=== PATIENT | female | born 1940 | race Caucasian/White ===

== ENCOUNTER 2016-09-25 18:45 | Emergency (ER) | payer MEDICARE, MEDICAID ==
[~2016-09-25 18:45] MED LIST: AMLODIPINE BESY10 M1 PO; AMLODIPINE10 M1 PO; APAP/HYDROCODON1 T13 PO; ASPIRIN ADULT L81 M4 PO; CETIRIZINE HYDR10 MG PO; CETIRIZINE10 M1 PO; CHLORTHALIDONE25 MG PO; CIPROFLOXACIN500 MG PO; FAMOTIDINE20 MG PO; FLA500 PO; HYDROCHLOROTH12.5 MG PO; LAC PO; LYRICA100 M1 PO; LYRICA50 M1 PO; NEU300 PO; NOR10T PO; PEPCID20 MG PO; SIMVASTATIN20 M1 PO; ZOVIRAX800 MG PO
[2016-09-25 19:48] LABS: CALCIUM 9.1 mg/dL (8.5-10.1); CARBON DIOXIDE 27.4 mmol/L (21-32); CHLORIDE SERUM 104 mmol/L (98-107); CREATININE SERUM 0.7 mg/dL (0.6-1.0); GLUCOSE SERUM 109 mg/dL (74-106); POTASSIUM SERUM 3.4 mmol/L (3.5-5.1); SODIUM SERUM 140 mmol/L (136-145)
[2016-09-25 19:54] LABS: ALBUMIN 4.1 g/dL (3.4-5.0); ALKALINE PHOSPHATASE 83 U/L (46-116); ALT/SGPT 13 U/L (14-59); AST/SGOT 20 U/L (15-37); CHOLESTEROL 182 mg/dL (<200); HDL CHOLESTEROL 69 mg/dL (40-60); LIPASE 132 IU/L (73-393); MAGNESIUM 2.1 mg/dL (1.8-2.4); TOTAL PROTEIN, SERUM 8.2 g/dL (6.4-8.2)
[2016-09-25 20:28] LABS: BASOPHIL % 0.5 % (0-2); PLATELET COUNT 220 x10^3mcL (130-400); RED CELL DISTRIBUTION WIDTH 14.3 % (11.5-14.5)
[2016-09-25] MEDS ORDERED: HYDROCHLOROTHIA25 MG PO (21:45)
[2016-09-26 02:02] VITALS: BP 155/94
== END 2016-09-26 02:00 | disposition short-term general hospital (02) ==
LOC: ED 18:45
PROVIDERS: Emergency Medicine
DX: I63.9 Cerebral infarction, unspecified (principal); I10 Essential (primary) hypertension; Z79.899 Other long term (current) drug therapy; G62.9 Polyneuropathy, unspecified
CPT/HCPCS: 83880; J1200; J2405; J2765; J3010; J7030; J7040; J8597

== ENCOUNTER 2018-05-23 07:20 | Emergency (ER) | payer MEDICARE, MEDICAID ==
[~2018-05-23] VITALS: Ht 157.5 cm; Wt 61.7 kg
[~2018-05-23 07:20] MED LIST changes: +HYDROCHLOROTHIA25 MG PO
[2018-05-23 07:31] VITALS: Ht 157.5 cm; Wt 61.7 kg
[2018-05-23 08:06] LABS: BASOPHIL % 0.9 % (0-2); PLATELET COUNT 208 x10^3mcL (130-400); RED CELL DISTRIBUTION WIDTH 13.2 % (11.5-14.5)
[2018-05-23 08:15] LABS: CALCIUM 9.1 mg/dL (8.5-10.1); CHLORIDE SERUM 101 mmol/L (98-107); CREATININE SERUM 0.8 mg/dL (0.6-1.0); GLUCOSE SERUM 128 mg/dL (74-106); POTASSIUM SERUM 3.2 mmol/L (3.5-5.1); SODIUM SERUM 138 mmol/L (136-145)
[2018-05-23 08:20] LABS: ALBUMIN 4.1 g/dL (3.4-5.0); ALKALINE PHOSPHATASE 81 U/L (46-116); ALT/SGPT 13 U/L (14-59); AST/SGOT 22 U/L (15-37); BILIRUBIN TOTAL 0.46 mg/dL (0.20-1.00); LIPASE 120 IU/L (73-393)
[2018-05-23 08:26] LABS: TOTAL PROTEIN, SERUM 8.5 g/dL (6.4-8.2)
[2018-05-23 10:37] VITALS: BP 126/87
== END 2018-05-23 10:37 | disposition home or self-care (01) ==
LOC: ED 07:20
PROVIDERS: Emergency Medicine
DX: H81.399 Other peripheral vertigo, unspecified ear (principal); R11.2 Nausea with vomiting, unspecified; I10 Essential (primary) hypertension; Z88.5 Allergy status to narcotic agent
CPT/HCPCS: J1885; J2405; J7030; J8597

== ENCOUNTER 2019-02-27 20:46 | Emergency (ER) | payer MEDICARE, MEDICAID ==
[~2019-02-27] VITALS: Ht 157.5 cm; Wt 63.5 kg
[2019-02-27 20:50] VITALS: Ht 157.5 cm; Wt 63.5 kg
[2019-02-27 23:00] LABS: BASOPHIL % 0.4 % (0-2); PLATELET COUNT 188 x10^3mcL (130-400); RED CELL DISTRIBUTION WIDTH 13.4 % (11.5-14.5)
[2019-02-27 23:01] LABS: CALCIUM 8.7 mg/dL (8.5-10.1); CARBON DIOXIDE 28.1 mmol/L (21-32); CHLORIDE SERUM 105 mmol/L (98-107); CREATININE SERUM 0.7 mg/dL (0.6-1.0); GLUCOSE SERUM 110 mg/dL (74-106); POTASSIUM SERUM 3.9 mmol/L (3.5-5.1); SODIUM SERUM 142 mmol/L (136-145)
[2019-02-27 23:06] LABS: ALBUMIN 3.8 g/dL (3.4-5.0); ALKALINE PHOSPHATASE 75 U/L (46-116); ALT/SGPT 11 U/L (14-59); AST/SGOT 22 U/L (15-37); BILIRUBIN TOTAL 0.24 mg/dL (0.20-1.00); TOTAL PROTEIN, SERUM 7.7 g/dL (6.4-8.2)
[2019-02-27] MEDS ORDERED: LYRICA100 M1 PO (23:45)
[2019-02-27] MEDS ORDERED: ACETAMINOPHEN &1 TA1 PO (23:46)
[2019-02-27] MEDS ORDERED: NOR10 PO (23:46)
[2019-02-28 01:57] VITALS: BP 141/62
== END 2019-02-28 01:57 | disposition short-term general hospital (02) ==
LOC: ED 20:46
PROVIDERS: Emergency Medicine
DX: S72.002A Fracture of unspecified part of neck of left femur, initial encounter for closed fracture (principal); S69.92XA Unspecified injury of left wrist, hand and finger(s), initial encounter; M97.02XA Periprosthetic fracture around internal prosthetic left hip joint, initial encounter; M19.90 Unspecified osteoarthritis, unspecified site; I10 Essential (primary) hypertension; Z88.8 Allergy status to other drugs, medicaments and biological substances; W01.0XXA Fall on same level from slipping, tripping and stumbling without subsequent striking against object, initial encounter; Y93.89 Activity, other specified; Y92.89 Other specified places as the place of occurrence of the external cause; Y99.8 Other external cause status
CPT/HCPCS: J2270; Q0092

== ENCOUNTER 2019-09-14 23:03 | Emergency (ER) | payer MEDICARE, MEDICAID, SELFPAY ==
[~2019-09-14] VITALS: Ht 160 cm; Wt 59.0 kg
[~2019-09-14 23:03] MED LIST changes: +ACETAMINOPHEN &1 TA1 PO; +NOR10 PO
[2019-09-14 23:14] VITALS: Ht 160 cm; Wt 59.0 kg
[2019-09-15 00:08] LABS: BASOPHIL % 0.9 % (0-2); PLATELET COUNT 195 x10^3mcL (130-400)
[2019-09-15 00:11] LABS: RED CELL DISTRIBUTION WIDTH 14.6 % (11.5-14.5)
[2019-09-15 00:15] LABS: CARBON DIOXIDE 28.4 mmol/L (21-32); CHLORIDE SERUM 104 mmol/L (98-107); CREATININE SERUM 0.7 mg/dL (0.6-1.0); GLUCOSE SERUM 106 mg/dL (74-106); POTASSIUM SERUM 3.8 mmol/L (3.5-5.1); SODIUM SERUM 142 mmol/L (136-145)
[2019-09-15 00:19] LABS: ALBUMIN 3.7 g/dL (3.4-5.0); ALKALINE PHOSPHATASE 68 U/L (46-116); ALT/SGPT 15 U/L (14-59); AST/SGOT 24 U/L (15-37); BILIRUBIN TOTAL 0.3 mg/dL (0.20-1.00); TOTAL PROTEIN, SERUM 7.7 g/dL (6.4-8.2)
[2019-09-15 00:46] LABS: microscopic required? NO
[2019-09-15 00:54] LABS: UA SPECIFIC GRAVITY 1.015 (1.005-1.035); urine erythrocyte NEGATIVE (NEGATIVE)
[2019-09-15 01:37] VITALS: BP 112/65
== END 2019-09-15 01:37 | disposition home or self-care (01) ==
LOC: ED 23:03
PROVIDERS: Emergency Medicine
DX: I10 Essential (primary) hypertension (principal); Z88.6 Allergy status to analgesic agent
CPT/HCPCS: 36415; Q0092; U0002

== ENCOUNTER 2020-01-28 17:22 | Emergency (ER) | payer MEDICARE, MEDICAID ==
[~2020-01-28] VITALS: Ht 160 cm; Wt 81.6 kg
[2020-01-28 17:50] VITALS: Ht 160 cm; Wt 81.6 kg
[2020-01-28 20:09] VITALS: BP 149/70
== END 2020-01-28 20:09 | disposition home or self-care (01) ==
LOC: ED 17:22
DX: S13.4XXA Sprain of ligaments of cervical spine, initial encounter (principal); S50.01XA Contusion of right elbow, initial encounter; S09.8XXA Other specified injuries of head, initial encounter; S79.911A Unspecified injury of right hip, initial encounter; M25.561 Pain in right knee; I10 Essential (primary) hypertension; M19.90 Unspecified osteoarthritis, unspecified site; Z88.8 Allergy status to other drugs, medicaments and biological substances; W01.198A Fall on same level from slipping, tripping and stumbling with subsequent striking against other object, initial encounter; Y93.89 Activity, other specified; Y92.89 Other specified places as the place of occurrence of the external cause; Y99.8 Other external cause status
CPT/HCPCS: J1885; Q0092